=== PATIENT | male | born 1975 | race Hispanic/Latino ===

== ENCOUNTER 2017-07-29 08:17 | Emergency (ER) | payer BC ==
[2017-07-29 08:25] VITALS: BP 142/105
--- NOTE | 2017-07-29 08:49 | ERNOTE ---
Upper Extremity HPI - General Extremities Pain Location: wrist: right Time Seen by Provider: 07/29/17 08:30 Source: patient Exam Limitations: no limitations - Immun/Allergies/Home Medications Allergies/Adverse Reactions: Allergies Allergy/AdvReac Type Severity Reaction Status Date / Time No Known Allergies Allergy Verified 07/29/17 08:25 Home Medications: HOME MEDICATIONS Montelukast Sodium [Singulair] 10 mg PO DAILY 07/29/17 [Last Taken Unknown] Naproxen [Naprosyn] 500 mg PO BID #60 tablet 07/29/17 [Last Taken Unknown] - History of Present Illness Narrative: Patient denies any injury but he has pain in the right wrist with some pain shooting up the arm and some numbness in the fingertips. Degree of pain is moderate at onset of symptoms but over the last 48 hours or so, patient does admit to repetitive use of his right hand Occurred: last week Severity: moderate Method of Injury: Reports: no apparent injury Loss of Consciousness: Reports: no loss of consciousness Associated Symptoms: Reports: numbness distally Other Injuries: Reports: none Review of Systems - Review of Systems Constitutional: Present: See HPI EYE: Present: no symptoms reported ENT: Present: no symptoms reported Respiratory: Present: no symptoms reported Cardiology: Present: no symptoms reported Gastrointestinal/Abdominal: Present: no symptoms reported Genitourinary: Present: no symptoms reported Musculoskeletal: Present: See HPI, joint pain Skin: Present: no symptoms reported Neurological: Present: numbness - thumb and first 3 fingers of the right hand palmar surface Endocrine: Present: no symptoms reported Hematologic/Lymphatic: Present: no symptoms reported Psych: Present: no symptoms reported - Patient's Past Medical History Patient History - Medical: No pertinent hx Patient History - Cardiac/Respiratory: Asthma Patient History - Cancer: No Hx of Cancer Patient History - Surgical Procedures: No surgical history Patient History - Other: None - Social History Living Situations: home Psych History: No pertinent hx Does anyone smoke in the home?: No Alcohol Use: none Drug Use: none Physical Exam - Physical Exam General Appearance: Present: wd/wn, alert, moderate distress Head Exam: Present: normal inspection Eye Exam: Normal inspection: bilateral, PERRL: bilateral Ears, Nose, Throat: Present: normal ENT inspection, H, normal pharynx Neck: Present: normal inspection, nontender Respiratory: Present: no respiratory distress, normal breath sounds, no accessory muscle use, chest nontender, lungs clear Cardiovascular/Chest: Present: regular rate, rhythm, no murmur, normal peripheral pulses Gastrointestinal/Abdominal: Present: normal bowel sounds, nontender, nondistended, soft, no organomegaly Rectal Exam: Present: deferred Back Exam: Present: normal inspection, normal range of motion Extremity Exam: Present: decreased range of motion, joint swelling, other - positive Phalen's and equivocal Tinel's Neurological Exam: Present: alert, oriented, normal mood/affect Skin Exam: Present: normal color, warm/dry Lymphatic Exam: Present: no adenopathy ED Progress - Vital Signs Patient's Vital Signs:: I have reviewed the patient's vital signs. Vital Signs: Vital Signs 07/29/17 08:21 Temperature 36.5 C Pulse Rate 68 Respiratory 12 Rate Blood Pressure 142/105 O2 Sat by Pulse 94 Oximetry - X-Ray X-Ray #1 X-Ray: wrist Interpretation: Reviewed by me - Progress/Reassessment Chief Complaint: Wrist Injury/Pain Plan - Plan Plan: Patient appears to encourage carpal tunnel likely from repetitive use, be placed in a wrist splint, started on Naprosyn and he will discuss an orthopedic referral with his family physician. Departure Clinical Impression: Carpal tunnel syndrome of right wrist - Departure Disposition: Home self-care Condition: Good Instructions: Carpal Tunnel Syndrome, [id number] Referrals: Mariaelena Clemente FNP [Primary Care Provider] - Prescriptions: Naproxen [Naprosyn] 500 mg PO BID #60 tablet
[2017-07-29] MEDS ORDERED: NAPROXEN SODIUM 550 MG TABLET PO ONE (08:59)
[2017-07-29] MEDS ORDERED: NAPROXEN SODIUM 550 MG TABLET ONE (08:59)
== END 2017-07-29 09:09 | disposition home or self-care (01) ==
LOC: ER 08:17
PROC: 2W3CX1Z Immobilization of Right Lower Arm using Splint (ICD-10-PCS; principal; 2017-07-29)
DX: G56.01 Carpal tunnel syndrome, right upper limb (principal); J45.909 Unspecified asthma, uncomplicated